=== PATIENT | female | born 1975 | race Hispanic/Latino ===

== ENCOUNTER → 2019-08-25 | Outpatient (CLI) | payer OTHER | END | disposition home or self-care (01) | LOC: OIH 15:10 | PROVIDERS: ATTEND Internal Medicine | DX: I10 Essential (primary) hypertension (principal) | CPT/HCPCS: 71046 ==

== ENCOUNTER → 2022-02-15 | Outpatient (CLI) | payer BC | END | disposition home or self-care (01) | LOC: RAH 08:36 | PROVIDERS: ATTEND Internal Medicine | DX: Z12.31 Encounter for screening mammogram for malignant neoplasm of breast (principal) | CPT/HCPCS: 77067 ==

== ENCOUNTER → 2023-02-07 | Outpatient (CLI) | payer BC | END | disposition home or self-care (01) | LOC: RAH 08:20 | PROVIDERS: ATTEND Internal Medicine | DX: Z12.31 Encounter for screening mammogram for malignant neoplasm of breast (principal) | CPT/HCPCS: 77067 ==

== ENCOUNTER → 2024-02-20 | Outpatient (CLI) | payer BC | END | disposition home or self-care (01) | LOC: RAH 10:55 | PROVIDERS: ATTEND Internal Medicine | DX: Z12.31 Encounter for screening mammogram for malignant neoplasm of breast (principal) | CPT/HCPCS: 77067 ==